=== PATIENT | female | born 1975 ===

== ENCOUNTER 2017-11-11 19:13 | Emergency (ER) | payer OTHER ==
[2017-11-11 19:13] VITALS: BMI 19.3
[2017-11-11 19:29] VITALS: O2SAT 100
[2017-11-11] MEDS ORDERED: Lactated Ringer's 1,000 ML IV STA (21:46)
--- NOTE | 2017-11-11 22:26 | ED PDOC ---
HPI: Female Pain Time Seen by Provider: 11/11/17 21:07 Chief Complaint (Nursing): Abdominal Pain Chief Complaint (Provider): vaginal bleeding History Per: Patient History/Exam Limitations: no limitations Onset/Duration Of Symptoms: Persistent (x2 weeks) Current Symptoms Are (Timing): Still Present Additional History Per: Patient Additional Complaint(s): 42 year old female, at approximately 4 weeks in , presents to ED with complaints of vaginal bleeding, dysuria and pelvic pain, onset of 2 weeks. Patient states she was initially spotting then had heavier bleeding today. She denies any urine frequency, fever, chills, nausea, vomiting or having care yet. LMP: 10/02/17. PMD: Dr. Prashanth Chang Past Medical History Reviewed: Historical Data, Nursing Documentation, Vital Signs Vital Signs: Last Vital Signs Temp 99.0 F 11/11/17 19:27 Pulse 61 11/11/17 19:27 Resp 16 11/11/17 19:27 BP 103/62 11/11/17 19:27 Pulse Ox 100 11/11/17 19:27 - Medical History PMH: No Chronic Diseases Denies: Chronic Kidney Disease - Surgical History Surgical History: No Surg Hx - Family History Family History: States: No Known Family Hx - Social History Current smoker - smoking cessation education provided: No Ex-Smoker (has not smoked in the last 12 months): No Alcohol: None Drugs: Denies - Home Medications Home Medications: Ambulatory Orders Medication Instructions Recorded Cyclobenzaprine [Flexeril] 1 - 2 tab PO Q8H PRN #10 tab 09/18/15 Ibuprofen [Motrin Tab] 1 tab PO Q8H PRN #20 tab 09/18/15 Multivit/Folic Acid/I 1 tab PO DAILY #100 tab 11/11/17 [ Plus] - Allergies Allergies/Adverse Reactions: Allergies Allergy/AdvReac Type Severity Reaction Status Date / Time No Known Allergies Allergy Verified 11/11/17 19:26 Review of Systems ROS Statement: Except As Marked, All Systems Reviewed And Found Negative Constitutional: Negative for: Fever, Chills Gastrointestinal: Negative for: Nausea, Vomiting Genitourinary Female: Positive for: Dysuria, Vaginal Bleeding, Pelvic Pain. Negative for: Frequency Physical Exam - Reviewed Nursing Documentation Reviewed: Yes Vital Signs Reviewed: Yes - Physical Exam Appears: Positive for: No Acute Distress Gastrointestinal/Abdominal: Positive for: Tenderness (suprapubic) - ECG O2 Sat by Pulse Oximetry: 100 (RA) Pulse Ox Interpretation: Normal Medical Decision Making Medical Decision Making: Initial Impression: Vaginal bleeding; pelvic pain; Initial Plan: * Type and screen * Beta-HCG * Urine * Urine dipstick * CBC * Lactated Ringers 1,000ml IV per 1,000mls/hr * US OB transvaginal EXAM: US , Transvaginal CLINICAL HISTORY: 42 years old, female; Pain; Other: Pelvic; Gestational age or lmp: 10/02/17; ; Additional info: Pelvic pain vagin bleed preg R/O ectopic TECHNIQUE: Real-time transvaginal obstetrical ultrasound of the maternal pelvis and a first trimester with image documentation. Transvaginal imaging was used for better evaluation of the fetus and adnexa. COMPARISON: No relevant prior studies available. FINDINGS: Gestation: Single live intrauterine gestation. heart rate of 127 beats per minute. [place]-rump length of 0.5 cm, correlating with gestational age of 6 weeks 2 days. Uterus/cervix: No subchorionic hemorrhage. Closed cervix. Ovaries: RIGHT ovary: 2.8 x 3.3 x 2.5 cm anechoic lesion. LEFT ovary: Normal. No adnexal masses. Free fluid: No significant free fluid. IMPRESSION: 1. Single live intrauterine gestation. 2. RIGHT ovarian cyst. Thank you for allowing us to participate in the care of your patient. Dictated and Authenticated by: Ivan Martinez MD 11/11/2017 11:29 PM Eastern Time ([place] & [place]) Scribe Attestation: Documented by Krysta Purcell, acting as a scribe for Emmie Lloyd MD. Provider Scribe Attestation: All medical record entries made by the Scribe were at my direction and personally dictated by me. I have reviewed the chart and agree that the record accurately reflects my personal performance of the history, physical exam, medical decision making, and the department course for this patient. I have also personally directed, reviewed, and agree with the discharge instructions and disposition. Disposition - Clinical Impression Clinical Impression: Abdominal pain during , Threatened miscarriage - Disposition [facility] - [facility] ([facility] 2-3 [facility]) Disposition: Routine/Home Condition: STABLE Prescriptions: Multivit/Folic Acid/I [ Plus] 1 tab PO DAILY #100 tab Instructions: Bleeding With (DC) Print Language: TAMAZIGHT
[2017-11-12 00:17] LABS: BASO # 0.1 K/uL (0.0-0.2); BASO % 0.7 % (0.0-2.0); EOS # 0.1 K/uL (0.0-0.7); EOS % 1.3 % (0.0-4.0); HEMOGLOBIN 11.9 g/dL (12.0-16.0); LYMPH # 3.2 K/uL (1.0-4.3); LYMPH % 37.4 % (20.0-40.0); MEAN CELL VOLUME 86.5 fl (81.0-99.0); MEAN CORPUSCULAR HEMOGLOBIN 29.4 pg (27.0-31.0); MEAN PLATELET VOLUME 8.2 fl (7.2-11.7); MONO # 0.8 K/uL (0.0-0.8); NEUT # 4.4 K/uL (1.8-7.0); NEUT % 51.6 % (50.0-75.0); RBC 4.04 Mil/uL (3.80-5.20); RED CELL DISTRIBUTION WIDTH 13.2 % (11.5-14.5); WHITE BLOOD COUNT 8.6 K/uL (4.8-10.8)
[2017-11-12 00:51] VITALS: BP 105/67; PULSE 67; RESP 18; TEMP 98.5
--- NOTE | 2017-11-12 10:54 | US ---
PROCEDURE: OB Pelvic Ultrasound HISTORY: pelvic pain vagin bleed preg r/o ectopic COMPARISON: None available. FINDINGS: UTERUS: Single Live intrauterine gestation. CRL measures 5 mm equivalent to 6 weeks 2 days gestational age. Gestational sac measures 22 mm equivalent to 6 weeks 6 days gestational age. age (Ultrasound estimated): 6 weeks 4 days Date of delivery (Ultrasound estimated) : 07/03/2018 Heart rate: 127 bpm. [place]-gestational hemorrhage: None. 3 mm yolk sac visualized. Uterus measures 7.4 x 4.4 x 4.3 cm. No mass CERVIX: Cervix measures 3.9 cm and is closed. RIGHT OVARY: Measures 4.5 x 3.4 x 4.1 cm. No solid mass. Normal flow. Simple cyst, 2.8 x 3.3 x 2.5 cm, likely physiologic. LEFT OVARY: Measures 2.3 x 1.4 x 1.8 cm. No mass. Normal flow. FREE FLUID: None. OTHER FINDINGS: None. IMPRESSION: Single live intrauterine gestation of approximately 6 weeks 4 days gestational age. No subchorionic hemorrhage. Cervix closed. Incidental 3.3 cm simple right ovarian cyst. The preliminary findings for this examination were reported by [facility] at 11:29 p.m. on 11/11/2017. There is concurrence of this report with the preliminary findings.
== END 2017-11-12 01:13 | disposition home or self-care (01) ==
LOC: H.ER 19:13
DX: O20.0 Threatened abortion (principal); N83.201 Unspecified ovarian cyst, right side; Z3A.01 Less than 8 weeks gestation of pregnancy
CPT/HCPCS: 76817; 81025; 84702; 85025; 86850; 86900; 99284; J7120

== ENCOUNTER 2018-07-02 07:33 | Inpatient (IN) | payer MEDICAID, SELFPAY ==
[2018-07-02 07:51] VITALS: BMI 30.2
[2018-07-02] MEDS ORDERED: Lactated Ringer's 1,000 ML IV ONE ×2 (07:51→07:54)
[2018-07-02] MEDS ORDERED: Oxytocin 30 UNIT in NS 500 ml 30 UNITS/500 ML BAG IV ONE ×2 (07:58→10:15)
[2018-07-02] MEDS ORDERED: OXYTOCIN/0.9 % NS 20 UNIT/1,000 ML BAG IV ONE (07:59)
[2018-07-02 10:01] LABS: BASO % 0.6 % (0.0-2.0); EOS # 0.1 K/uL (0.0-0.7); EOS % 0.9 % (0.0-4.0); HEMOGLOBIN 11.6 g/dL (12.0-16.0); LYMPH # 1.8 K/uL (1.0-4.3); LYMPH % 25.9 % (20.0-40.0); MEAN CELL VOLUME 86.8 fl (81.0-99.0); MEAN CORPUSCULAR HEMOGLOBIN 29.1 pg (27.0-31.0); MEAN CORPUSCULAR HGB CONC 33.5 g/dL (33.0-37.0); MEAN PLATELET VOLUME 8.4 fl (7.2-11.7); MONO # 0.6 K/uL (0.0-0.8); MONO % 8.6 % (0.0-10.0); NEUT # 4.5 K/uL (1.8-7.0); NRBC % 0.1 % (0.0-0.0); RBC 4.01 Mil/uL (3.80-5.20); RED CELL DISTRIBUTION WIDTH 13.6 % (11.5-14.5)
--- NOTE | 2018-07-02 11:24 | OBADHP ---
Datetime: 07/02/2018 09:15 IP Chief Complaint Other: IOL Admit Comment, IP Provider: HPI: Karen is a 43 year old at 39.0 weeks who presents today for sc heduled IOL due to advanced maternal age. Denies contractions, vaginal bleeding or LOF. Good mo vement. NASEEM: based on LMP pf 10/02/17, confirmed by 15 week US History 1 previous 25 years ago - reports she had a post hemorrhage requiring blood transfusio n History of 4 SABs Problems AMA PMH Sciatica PSH Denies Allergies NKDA Medications PNV Was on ASA, stopped at 36 weeks Social History No history of tobacco, alcohol or drug use during the FH Denies PHYSICAL EXAM Vitals reviewed labs: O+, Ab neg, chlamydia + first trimester with negative test of cure, third tri GC/ch lamydia neg, HIV/RPR NR, Hepatitis B neg, Rubella immune, genetic screening low risk ASSESSMENT/PLAN: 43 year old at 39.0 weeks here for IOL secondary to AMA -- Ernandez score of 7, plan to start pitocin for induction -- Vertex presentation by palpation during cervical exam, anticipate vaginal delivery -- Plan to place second IV when patient is more active due to her history of a post hemorrh age Claire Tejada MD OB Fellow OB Hospitalist Addendum: 43 yo at 39 wks admitted for induction of labor for advanced maer nal age. Pt to be started on pitocin. FHT reactive. GBS negative. (ES) Abdomen - PN: Normal Lungs - PN: Normal Heart - PN: Normal HEENT - PN: Normal General - PN: Normal Presentation-Admit: Vertex IP Fetus A Comments: Reactive NST FHR - Baseline A Provider: 145 Membranes, Provider: Intact Gestation - Est Wks by US: 39.0 Vital Signs Provider: Reviewed; Within Normal Limits NICHD Variability Prov Fetus A: Moderate 6-25bpm NICHD Accel Fetus A IP Provider: 10X10 NICHD Decel Fetus A IP Provider: None Dilatation, Provider: 3 Effacement, Provider: 50 Station, Provider: -2 IP Adm Impression: Term, intrauterine IP Admit Plan: Admit to unit; Initiate labor induction protocol
[2018-07-02] MEDS ORDERED: Lidocaine Hydrochloride 0 ML INJ ONE (17:42)
[2018-07-02] MEDS ORDERED: Benzocaine/Menthol SPRAY TOP PRN (19:44)
[2018-07-02] MEDS ORDERED: Oxycodone/Acetaminophen 5/325 mg Tab PO PRN ×2 (19:44)
[2018-07-02] MEDS ORDERED: Oxytocin 10 Units/ml Inj ONE (21:11)
[2018-07-02] MEDS ORDERED: ceFAZolin 2 GM in Sodium Chloride 0.9% 100 ML IVPB ONE (21:21)
[2018-07-02] MEDS ORDERED: Oxytocin 10 Units/ml Inj IM ONE (22:25)
--- NOTE | 2018-07-02 23:08 | OBDS ---
DELIVERY PERSONNEL Delivery Doctor: Claire Tejada MD Environmental Geologist: Sravani Griffin RN Resident: Dr. Marks, PGY1 MATERNAL INFORMATION Delivery Anesthesia: Local Medications in Delivery: Pitocin 30u/500mL of LR Placenta Cultured: Yes Maternal Complications: None Provider Comments: 43 year old admitted at 39.0 weeks for IOL due to AMA. Patient progressed to normal spontaneous vaginal delivery of live female infact, position MANJU over intact perineum without epidural anesthesia. There was intermittent terminal bradycardia for approximately 10 minutes before delivery that was treated with oxygen, discontinuation of pitocin and position change. Infant was vi gorous upon delivery and placed on maternal abdomen and delayed cord clamping was performed. Apgars w ere 9 _ 9, no excessive resuscitation required. No meconium or nuchal, there was a compound presentat ion with the L hand. There was a retained placenta that failed to delivery spontaneously after 30 min. 400mcg of cytote c was given vaginally but was not successful. The patient was consented for IV sedation and manual ex traction. Placenta was removed at 21:06 and appeared intact by visiual inspection but will be sent to pathology. The patient immediately had a hemorrhage that did not respond to bimanual mass age. She was given a total of 60 units of pitocin as well as 200mcg of Methergine with some response. A Bakri balloon was placed and filled with 300cc of sterile water. The fundus felt firm at that time and bleeding was at a minimum and the patient's vital signs remained stable. Total EBL was 2,000cc. Blood given at 21:35. The patient is currently awake and in stable condition. She will be recovered in L_D and kept here overnight for observation. Claire Tejada MD OB Fellow I was present for this delivery. (ES) LABOR SUMMARY EDC: 07/09/2018 00:00 No. Babies in Womb: 1 Attempted: No Labor Anesthesia: None LABOR INFORMATION Reason for Induction: Other Reason for Induction Other: AMA Onset of Labor: 07/02/2018 13:00 Complete Dilatation: 07/02/2018 18:45 Oxytocin: Augmentation Group B Beta Strep: Negative Antibiotics # of Doses: N/A Antibiotics Time of Last Dose: N/A Steroids Given: None Reason Steroids Not Administered: Not Applicable MEMBRANES Membranes Rupture Method: Spontaneous Rupture of Membranes: 07/02/2018 17:15 Length of Rupture (hrs): 2.05 Amniotic Fluid Color: Clear Amniotic Fluid Amount: Moderate Amniotic Fluid Odor: Normal STAGES OF LABOR Stage 1 hrs: 5 Stage 1 min: 45 Stage 2 hrs: 0 Stage 2 min: 33 VAGINAL DELIVERY Episiotomy: None Laceration Extension: First Degree Laceration Type: Perineal Laceration Repair: Yes Initial Vag Sponge Count: 15 Final Vag Sponge Count: 15 Initial Vag Sharps Count: 2 Final Vag Sharps Count: 2 Sponge Count Correct: Yes Sharps Count Correct: Yes Count Comment: MD Confirmed count BABY A INFORMATION Infant Delivery Date/Time: 07/02/2018 19:18 Method of Delivery: Vaginal Born in Route : No : N/A Forceps: N/A Vacuum Extraction: N/A Shoulder Dystocia : No SHOULDER DYSTOCIA BABY A Delivery Date/Time: 07/02/2018 19:18 PRESENTATION/POSITION BABY A Presentation: Cephalic Cephalic Presentation: Vertex Breech Presentation: N/A SCORES BABY A Heart Rate 1 min: >100 bpm Resp Effort 1 min: Good Cry Reflex Irritability 1 min: Cough or Sneeze or Pulls Away Muscle Tone 1 min: Active Motion Color 1 min: Body [place], Extremities Blue Resuscitation Effort 1 min: Tactile Stimulation SCORE 1 MIN: 9 Heart Rate 5 min: >100 bpm Resp Effort 5 min: Good Cry Reflex Irritability 5 min: Cough or Sneeze or Pulls Away Muscle Tone 5 min: Active Motion Color 5 min: Body [place], Extremities Blue Resuscitation Effort 5 min: N/A SCORE 5 MIN: 9 INFANT INFORMATION BABY A Gestational Age at Delivery: 39.0 Gestational Status: Term Outcome : Liveborn Infant Condition : Stable Infant Sex: Female IDENTIFICATION/MEDS BABY A ID Band Location: Left Leg; Left Arm CORD INFORMATION BABY A No. Cord Vessels: 3 Nuchal Cord : N/A Cord Blood Taken: Yes Suction: Mouth; Nose ASSESSMENT BABY A Infant Complications: Extended Bradycardia Physical Findings at Delivery: Within Normal Limits Infant Respirations: Appears Normal Perl Developer/ALS Called : No Infant Care By: Dr. Chinchilla/Nicholas MEYESR Transferred To: Remains with Mother
[2018-07-03] MEDS: Lactated Ringer's 1,000 ML IV SCH ×2 (01:03→11:51)
[2018-07-03 03:20] LABS: HEMOGLOBIN 9.2 g/dL (12.0-16.0); MEAN CORPUSCULAR HEMOGLOBIN 28.1 pg (27.0-31.0); MEAN CORPUSCULAR HGB CONC 32.7 g/dL (33.0-37.0); RBC 3.26 Mil/uL (3.80-5.20); RED CELL DISTRIBUTION WIDTH 14.7 % (11.5-14.5); WHITE BLOOD COUNT 15.7 K/uL (4.8-10.8)
--- NOTE | 2018-07-03 11:54 | OBPPN ---
Datetime: 07/03/2018 06:21 PP Pain Prov: Within normal limits PP Nausea Prov: Denies PP Flatus Prov: Yes PP BM Prov: No PP Heart Prov: Normal PP Lungs Prov: Normal PP Abdomen/Uterus Prov: Normal PP Lochia Prov: Normal PP Extremities Prov: Normal PP C/S Incision Prov: Not Applicable PP Progress Prov: Normal PP Comments Phys Exam Prov: GEN: NAD HEENT: NCAT CARD: RRR + S1S2 RESP: CTA, no wheezing, rales or rhonchi GI: + BS, appropriate tenderness to palpation EXT: No edema, no calf tenderness Maria and Bakri ballon intact, wearing diaper PP Impression Prov: Normal progression PP Plan Prov: Continue present management PP Progress Note Prov: [id number]:[id number] S: 43 yo F S/P with retained placenta manually extracted, post- hemorrhage with 2L of b lood loss, hemobate given, bakri balloon/Maria inserted on 07/02/18 evaluated on PPD1. Pt was seen a nd examined at bedside this AM. Pain is controlled with medications. Bottle and breast feeding. Lochi a being drained by bakri balloon 300cc, Maria intact 1250cc. +Flatus/-BM. Tolerating regular diet, beasley s not ambulated yet. Reports fatigue. Denies fever/chills, dizziness, SOB, chest pain, nausea, vomiti ng, diarrhea or constipation. VS: BP 112/80, HR 85 O2 Sat 99 on RA GEN: NAD Cardio: +S1S2, no murmurs Lungs: CTA B/L, no wheezes rales or rhonchi Abdomen: BS+, appropriate tenderness to palpation. Uterus is firm and at the level of the umbilic us. EXT: No edema, calves nontender H/H (post ): 9.2/28.1 Assessment: 43 yo F S/P with retained placenta manually extracted, post- hemorrhage wit h 2L of blood loss, hemobate given, bakri balloon/Maria inserted on 07/02/18 evaluated on PPD1. Plan: Monitor I/O with maria and Bakri balloon Monitor vital signs Encourage Regular diet, IVF's Ibuprofen 600mg q6 and Percocet 1-2 tablet 5-325mg prn for pain Anticipating d/c on 07/04/18 without patient follow up at [facility], pt has an appt Case reviewed and discussed with Dr. Ramila Mcdonough PGY1 Addendum by Dr. Mcgrath: I have evaluated the patient independently and I agree with the above. The patient appears to be be stable, VSS. Will re-evalaute 24hrs post Bakri placement for possible remova l as well as maria removal IP PP Procedures: None Vital Signs Provider PP: Reviewed; Within Normal Limits
[2018-07-03 14:03] LABS: BASO % 0.4 % (0.0-2.0); EOS # 0.1 K/uL (0.0-0.7); EOS % 0.4 % (0.0-4.0); HEMOGLOBIN 7.7 g/dL (12.0-16.0); LYMPH # 2.3 K/uL (1.0-4.3); LYMPH % 18.7 % (20.0-40.0); MEAN CELL VOLUME 84.6 fl (81.0-99.0); MEAN CORPUSCULAR HEMOGLOBIN 27.7 pg (27.0-31.0); MEAN CORPUSCULAR HGB CONC 32.8 g/dL (33.0-37.0); MEAN PLATELET VOLUME 7.4 fl (7.2-11.7); MONO # 1.1 K/uL (0.0-0.8); MONO % 8.5 % (0.0-10.0); RBC 2.77 Mil/uL (3.80-5.20); RED CELL DISTRIBUTION WIDTH 14.8 % (11.5-14.5); WHITE BLOOD COUNT 12.5 K/uL (4.8-10.8)
--- NOTE | 2018-07-03 14:26 | OBPPN ---
Datetime: 07/03/2018 14:21 PP Pain Prov: Within normal limits PP Nausea Prov: Denies PP Flatus Prov: Yes PP Breasts Prov: Normal PP Heart Prov: Normal PP Lungs Prov: Normal PP Abdomen/Uterus Prov: Normal PP Lochia Prov: Normal PP Vulva/Perineum Prov: Normal PP CVA Tenderness Prov: Normal PP Extremities Prov: Normal PP Comments Phys Exam Prov: Fundus firm under umbilicus Bakri removed without difficulty FOlery removed without difficulty PP Progress Note Prov: Patient evaluated - Hgb=7.7, VSS throughout morning/early afternoon. Patient denies CP, SOB, N/V, dizziness. DIscussed with patient that Bakri balloon was not putting out anymore vaginal bleeding, UO = 600ml over 4 hours. Patient appeared stable at this point to deflate both Mark ri and maria and remove. Both remove successfully. Uterus firm, lochia mild at best. WIll have patien t sit up and ambulate. DIscussed with patient if she becomes symptomatic, will offer transfusion. CBC for AM. All questions answered Vital Signs Provider PP: Reviewed; Within Normal Limits
[2018-07-03] MEDS ORDERED: Benzocaine/Menthol SPRAY TOP PRN (14:32)
[2018-07-03] MEDS ORDERED: Oxycodone/Acetaminophen 5/325 mg Tab PO PRN ×2 (14:32)
--- NOTE | 2018-07-04 07:49 | OBPPN ---
Datetime: 07/04/2018 07:36 PP Pain Prov: Within normal limits PP Nausea Prov: Denies PP Flatus Prov: Yes PP BM Prov: No PP Breasts Prov: Not Done PP Heart Prov: Normal PP Abdomen/Uterus Prov: Normal PP Lochia Prov: Normal PP Vulva/Perineum Prov: Normal PP CVA Tenderness Prov: Normal PP Extremities Prov: Normal PP C/S Incision Prov: Not Applicable PP Progress Prov: Normal PP Impression Prov: Normal progression PP Plan Prov: Continue present management; Discharge PP Progress Note Prov: 43 yo F S/P with retained placenta manually extracted, post-part um hemorrhage with 2L of blood loss, hemobate given, bakri balloon/Gomez inserted on 07/02/18 and rem toby on 07/03/18, evaluated on PPD2. Pt was seen and examined at bedside this AM. Pain is controlled w ith medications. Bottle and breast feeding. Lochia being drained by bakri balloon 300cc, Gomez intact 1250cc. +Flatus/-BM. Tolerating regular diet, has not ambulated yet. Reports fatigue. Denies fever/c hills, dizziness, SOB, chest pain, nausea, vomiting, diarrhea or constipation. GEN: NAD Cardio: +S1S2, no murmurs Lungs: CTA B/L, no wheezes rales or rhonchi Abdomen: BS+, appropriate tenderness to palpation. Uterus is firm and at the level of the umbilic us. EXT: No edema, calves nontender H/H (post ): 7.7/23.5 Assessment: 43 yo F S/P with retained placenta manually extracted, post- hemorrhage wit h 2L of blood loss, hemobate given, bakri balloon/Gomez removed on 07/03/18 evaluated on PPD2. Plan: Gomez and Bakri balloon removed successfully yesterday Monitor vital signs Encourage Regular diet Ibuprofen 600mg q6 and Percocet 1-2 tablet 5-325mg prn for pain Ferrous sulfate 325mg po D/C today 07/04/18 Machelle Sheets, PGY 1 OB Hospitalist Addendum: Pt seen and examined by me. Agree w/ above. PPD 2 s/p , PPH, Bakri b alloon removed yesterday, breast and bottle feeding. Discharge home today w/ rx's motrin and ferrous sulfate. (ES) IP PP Procedures: None Vital Signs Provider PP: Reviewed; Within Normal Limits
[2018-07-04 08:04] LABS: BASO # 0.1 K/uL (0.0-0.2); BASO % 0.7 % (0.0-2.0); EOS # 0.1 K/uL (0.0-0.7); EOS % 1.3 % (0.0-4.0); LYMPH % 27.7 % (20.0-40.0); MEAN CELL VOLUME 84.7 fl (81.0-99.0); MEAN CORPUSCULAR HEMOGLOBIN 28.8 pg (27.0-31.0); MEAN CORPUSCULAR HGB CONC 34.1 g/dL (33.0-37.0); MEAN PLATELET VOLUME 8.1 fl (7.2-11.7); MONO # 1.1 K/uL (0.0-0.8); MONO % 9.8 % (0.0-10.0); NEUT # 6.6 K/uL (1.8-7.0); NEUT % 60.5 % (50.0-75.0); RBC 2.78 Mil/uL (3.80-5.20); RED CELL DISTRIBUTION WIDTH 14.9 % (11.5-14.5); WHITE BLOOD COUNT 10.9 K/uL (4.8-10.8)
[2018-07-04] MEDS ORDERED: Influenza Vaccine (5 YR UP)/PF 60 MCG/0.5 ML SYR IM ONE ×2 (09:00→13:16)
[2018-07-04] MEDS ORDERED: Influenza Vaccine 60 mcg/0.5 mL SYR (4YR UP) IM ONE (13:32)
[2018-07-04 19:38] VITALS: BP 119/66; PULSE 73; RESP 20; TEMP 98.9; O2SAT 100
== END 2018-07-04 15:10 | disposition home or self-care (01) | DRG 560 ==
LOC: H.EROB2 07:33 → H.L&D 07:51 → H.OB/GYN 07-03 15:00
PROVIDERS: ADMIT Obstetrics & Gynecology; ATTEND Obstetrics & Gynecology
PROC: 10E0XZZ Delivery of Products of Conception, External Approach (ICD-10-PCS; principal; 2018-07-02)
PROC: 0HQ9XZZ Repair Perineum Skin, External Approach (ICD-10-PCS; 2018-07-02)
PROC: 4A1HXCZ Monitoring of Products of Conception, Cardiac Rate, External Approach (ICD-10-PCS; 2018-07-02)
DX: O76 Abnormality in fetal heart rate and rhythm complicating labor and delivery (principal); O72.0 Third-stage hemorrhage; Z37.0 Single live birth; O70.0 First degree perineal laceration during delivery; Z3A.39 39 weeks gestation of pregnancy